=== PATIENT | female | born 1985 | race Caucasian/White ===

== ENCOUNTER 2021-10-11 18:39 | Emergency (ER) | payer OTHER ==
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
[2021-10-11] MEDS ORDERED: TYLENOL EXTRA STRENGTH 500 MG PO STA (19:46)
[2021-10-11] MEDS ORDERED: TYLENOL EXTRA STRENGTH 500 MG ONE (19:46)
[2021-10-11] MEDS ORDERED: ANTIVERT 25 MG PO ONE (19:52)
[2021-10-11] MEDS ORDERED: ANTIVERT 25 MG ONE (19:53)
[2021-10-11 19:58] VITALS: BP 135/91; PULSE 66; O2SAT 98
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
== END 2021-10-11 20:03 | disposition home or self-care (01) ==
LOC: ED 18:39
DX: S06.0X0A Concussion without loss of consciousness, initial encounter (principal); W50.0XXA Accidental hit or strike by another person, initial encounter; Y93.16 Activity, rowing, canoeing, kayaking, rafting and tubing; R51.9 Headache, unspecified; H53.8 Other visual disturbances; R42 Dizziness and giddiness; H93.11 Tinnitus, right ear; Z79.899 Other long term (current) drug therapy
CPT/HCPCS: 70450; 99284; A9270-GY